=== PATIENT | male | born 1985 | race Caucasian/White ===

== ENCOUNTER 2018-12-25 00:10 | Emergency (ER) | payer SELFPAY ==
[~2018-12-25] VITALS: Ht 167.6 cm; Wt 65.6 kg
[2018-12-25 00:12] VITALS: Ht 167.6 cm; Wt 65.6 kg
--- NOTE | 2018-12-25 00:51 | ERD ---
ER Documentation Chief Complaint Chief Complaint R shoulder pain after [facility] fall. had a few drinks tonight. HPI 33-year-old male, previously healthy, presents to the emergency department, c omplaining of right shoulder pain after sustaining a mechanical ground-level fall last night while the patient was drinking. No head trauma. The pain is dull, deep, constant, 7/10. He denies distal weakness, numbness or tingling. ROS All systems reviewed and are negative except as per history of present illness. Medications Home Meds Active Scripts Ibuprofen* (Motrin*) 400 Mg Tab, 400 MG PO Q6H PRN for PAIN AND OR ELEVATED TEMP, #30 TAB Prov:KAI HODGE MD 12/25/18 Acetaminophen* (Tylenol*) 325 Mg Tablet, 2 TAB PO Q6 PRN for PAIN AND OR ELEVA EMILY TEMP, #20 TAB Prov:KAI HODGE MD 12/25/18 Allergies Allergies: Coded Allergies: No Known Allergy (Unverified , 12/25/18) PMhx/Soc Medical and Surgical Hx: pt denies Surgical Hx Hx Cardiac Disorders: Yes (hld) Hx Alcohol Use: Yes (occassionally) Hx Substance Use: No Hx Tobacco Use: No Smoking Status: Current every day smoker FmHx Family History: No diabetes, No coronary disease Physical Exam Vitals Vital Signs Date Temp Pulse Resp B/P (MAP) Pulse Ox O2 O2 Flow FiO2 Time Delivery Rate 12/25/18 97.8 70 22 100/64 100 00:12 (76) Physical Exam Const: No acute distress Head: Atraumatic Eyes: Normal Conjunctiva ENT: Normal External Ears, Nose and Mouth. Neck: Full range of motion. No meningismus. Resp: Clear to auscultation bilaterally Cardio: Regular rate and rhythm, no murmurs Abd: Soft, non tender, non distended. Normal bowel sounds Skin: No petechiae or rashes Back: No midline or flank tenderness Ext: Right shoulder: Tenderness to palpation of the rotator cuff area predominantly in the posterior aspect, otherwise, normal inspection, full passive range of motion, distal neurovascular exam intact Neur: Awake and alert Psych: Normal Mood and Affect Results 24 hrs Current Medications Medications Dose Sig/Tay Start Time Status Last (Trade) Ordered Route PRN Stop Time Admin Dose Reason Admin Ibuprofen 400 mg ONCE ONCE 12/25/18 DC 12/25/18 (Motrin) PO 01:00 01:18 12/25/18 01:03 650 mg ONCE ONCE 12/25/18 DC 12/25/18 Acetaminophen PO 01:00 01:19 (Tylenol 12/25/18 01:03 Tab) Procedures/MDM Acute right shoulder pain: no red flags. Differential diagnosis include but not limited to: Shoulder contusion, rotator cuff injury, tendon/ligament injury, arthritis; low suspicion for fracture, dislocation, septic arthritis. Neurovascular exam grossly intact. no clinical findings suggestive of acute infectious process, no acute deformity, no edema, no rashes. Physical examination and clinical presentation consistent most likely with shoulder contusion. During the ED course the patient received treatment with Tylenol, Motrin and sling presenting overall improvement of the symptoms. Results and clinical impression discussed with the patient who agrees with management. The patient is stable to be treated outpatient and will be discharged home with recommendations for ice, rest and partial immobilization. NSAIDs 3 times daily for 5 days and close monitoring. The patient was instructed to follow up with the primary care provider in the next 48h. If symptoms persist, worsen or new symptoms develop, then patient should return to the ED immediately. Instructions explained and given to patient with acknowledgment and demonstrated understanding. Disclaimer: Inadvertent spelling and grammatical errors are likely due to EHR/dictation software use and do not reflect on the overall quality of patient care. Also, please note that the electronic time recorded on this note does not necessarily reflect the actual time of the patient encounter. Departure Diagnosis: Primary Impression: Contusion of right shoulder Condition: Stable Additional Instructions: Thank you very much for allowing us to participate in your care. Your health and safety is our top priority at [facility]. The evaluation in the emergency department has been done to rule out an acute emergency, therefore, chronic conditions like malignancy or other diseases have not been evaluated; therefore, you need to follow up with a primary care provider in the next 48h. If symptoms persist, worsen or new symptoms develop, then patient should return to the ED immediately. Call your primary care doctor TOMORROW for an appointment during the next 2-4 days and bring all the information provided. Have prescriptions filled and follow precisely the directions on the label. If the symptoms get worse and your provider is unavailable, return to the Emergency Department immediately. KAI HODGE MD Dec 25, 2018 00:51
[2018-12-25] MEDS ORDERED: IBUPROFEN 200 MG TAB PO ONE (01:00)
[2018-12-25] MEDS ORDERED: ACETAMINOPHEN 325 MG TAB PO ONE (01:00)
[2018-12-25] MEDS ORDERED: IBUP-1561 PO (02:08)
[2018-12-25] MEDS ORDERED: ACET325T33 PO (02:08)
[2018-12-25 02:40] VITALS: BP 103/65; PULSE 73; RESP 18
== END 2018-12-25 02:40 | disposition home or self-care (01) ==
LOC: FTE 00:10
DX: S40.011A Contusion of right shoulder, initial encounter (principal); F17.210 Nicotine dependence, cigarettes, uncomplicated; W18.39XA Other fall on same level, initial encounter; Y92.9 Unspecified place or not applicable